=== PATIENT | female | born 1955 | race Caucasian/White ===

== ENCOUNTER → 2017-01-11 | Outpatient (CLI) | payer OTHER ==
[2017-01-11 09:22] LABS: HEMOGLOBIN 12.4 gm/dl (12.3-15.3); RED BLOOD COUNT 4.2 M/UL (4.00-5.10); WHITE BLOOD COUNT 6.5 K/UL (4.5-11.0)
[2017-01-11 09:39] LABS: BUN/CREATININE RATIO 15 (0-10)
== END ==
LOC: LAB 08:41
PROVIDERS: Nurse Practitioner
DX: M43.6 Torticollis (principal); R25.1 Tremor, unspecified
CPT/HCPCS: 36415; 80053; 82728; 84436; 84443; 84480; 85027